=== PATIENT | female | born 1985 | race Caucasian/White ===

== ENCOUNTER 2025-04-10 11:00 | Emergency (ER) | payer BC ==
[~2025-04-10] VITALS: Ht 162.6 cm; Wt 52.0 kg
[2025-04-10] MEDS ORDERED: HYDR25TA83 PO (13:52)
[2025-04-10 13:58] VITALS: BP 111/77; PULSE 71; RESP 18; TEMP 98.605328; O2SAT 99
== END 2025-04-10 14:04 | disposition home or self-care (01) ==
LOC: EMS 11:00
DX: F41.8 Other specified anxiety disorders (principal); F31.9 Bipolar disorder, unspecified
CPT/HCPCS: 99284; Z7502